=== PATIENT | female | born 1955 | race Caucasian/White ===

== ENCOUNTER 2019-09-17 18:13 | Emergency (ER) | payer OTHER ==
[~2019-09-17] VITALS: Ht 154.9 cm; Wt 86.2 kg
[2019-09-17 18:39] VITALS: BP_SYST 172
--- NOTE | 2019-09-17 18:39 | NUR ---
Patient to ER bed 06 to gown for evaluation. Side rails up. Report given to URSULA Armijo
--- NOTE | 2019-09-17 18:44 | NUR ---
ER Dr. Carcamo at bedside examining patient.
--- NOTE | 2019-09-17 18:55 | NUR ---
Pt came to ER for L knee pain, hx L hip replcament and R leg cyst. Pt has also tested positive for Covid twice recently and is pending results for a third test.
--- NOTE | 2019-09-17 19:12 | NUR ---
Received report from URSULA Armijo.
--- NOTE | 2019-09-17 19:27 | NUR ---
X-ray at bedside.
--- NOTE | 2019-09-17 20:28 | NUR ---
ER Dr. Jimenez at bedside examining patient.
[2019-09-17] MEDS ORDERED: KETOROLAC TROMETHAMINE 15 MG VIAL IM ONE (21:00)
[2019-09-17 21:10] VITALS: BP_SYST 128
--- NOTE | 2019-09-17 21:10 | NUR ---
Patient given written and verbal discharge instructions and verbalizes understanding. ER MD discussed with patient the results and treatment provided. Patient in stable condition. ID arm band removed. No Rx given. Patient educated on pain management and to follow up with PMD. Pain Scale 2/10. Opportunity for questions provided and answered.
== END 2019-09-17 21:10 | disposition home or self-care (01) ==
LOC: EEVIPCON 18:13 → SED 18:13
DX: S83.92XA Sprain of unspecified site of left knee, initial encounter (principal); X50.3XXA Overexertion from repetitive movements, initial encounter; Y93.89 Activity, other specified; Y92.89 Other specified places as the place of occurrence of the external cause; Y99.8 Other external cause status
CPT/HCPCS: 29505; 73564; 96372; 99283; J1885